=== PATIENT | male | born 1990 | race Caucasian/White ===

== ENCOUNTER 2019-07-15 23:32 | Emergency (ER) | payer BC | END 2019-07-16 00:53 | disposition home or self-care (01) | LOC: ERS 23:32 | DX: J10.1 Influenza due to other identified influenza virus with other respiratory manifestations (principal); F17.210 Nicotine dependence, cigarettes, uncomplicated | CPT/HCPCS: 87804; 99283 ==

== ENCOUNTER 2023-09-24 16:00 | Outpatient (CLI) | payer OTHER | END 2023-09-24 16:01 | disposition home or self-care (01) | LOC: SLEEPLAB 16:00 | PROVIDERS: ATTEND Family Medicine | DX: G47.33 Obstructive sleep apnea (adult) (pediatric) (principal); R53.83 Other fatigue; E66.9 Obesity, unspecified; R06.83 Snoring; E78.1 Pure hyperglyceridemia; F41.8 Other specified anxiety disorders; F98.8 Other specified behavioral and emotional disorders with onset usually occurring in childhood and adolescence; F17.200 Nicotine dependence, unspecified, uncomplicated; Z68.42 Body mass index [BMI] 45.0-49.9, adult | CPT/HCPCS: 95811 ==

== ENCOUNTER 2025-03-28 11:54 | Emergency (ER) | payer OTHER ==
[2025-03-28] MEDS ORDERED: Ketorolac Tromethamine 30 MG (1 mL) VIAL ONE (12:29)
[2025-03-28 12:44] LABS: #Basophils 0.04 10x3/uL (0.0-0.2); #Eosinophils 0.28 10x3/uL (0.0-0.7); #Monocytes 1.02 10x3/uL (0.11-0.59); #Neutrophils 8.82 10x3/uL (1.40-6.50); %Basophils 0.3 % (0.0-1.0); %Eosinophils 2.3 % (0.0-10.0); %Lymphocytes 15.9 % (21.0-51.0); %Monocytes 8.4 % (0.0-10.0); %Neutrophils 72.8 % (42.0-75.0); Hematocrit 37.6 % (42.0-52.0); Hemoglobin 12.7 g/dL (14.0-18.0); Mean Corpuscular Hemoglobin 30.2 pg (27.0-31.0); Mean Corpuscular Volume 89.5 fL (78.0-98.0); Platelet Count 221 10x3/uL (130-400); Red Blood Cell (RBC) Count 4.20 mill/uL (4.70-6.10); White Blood Cell (WBC) Count 12.13 10x3/uL (4.8-10.8)
[2025-03-28 13:06] LABS: Albumin 3.5 g/dL (3.1-4.5); Anion Gap 13 mmol/L (10-20); BUN (Urea Nitrogen) 10 mg/dL (8.9-20.6); Bilirubin, Total 0.9 mg/dL (0.3-1.2); Calc. Creatinine Clearance 0 mL/min (70-130); Calcium 9.3 mg/dL (7.8-10.44); Carbon Dioxide 26 mmol/L (22-29); Chloride 108 mmol/L (98-107); Globulin 3.4 g/dL (2.4-3.5); Glucose 87 mg/dL (70-105); Potassium 4.2 mmol/L (3.5-5.1); Sodium 143 mmol/L (136-145)
[2025-03-28 13:07] LABS: ALT (SGPT) 55 U/L (Less than 45); AST (SGOT) 44 U/L (11-34); Alkaline Phosphatase 106 U/L (40-110); Lipase 33 U/L (8-78)
[2025-03-28] MEDS ORDERED: Iopamidol-370 76% 500 ML MDV (1 ML CHARGE) ONE (13:27)
[2025-03-28 13:56] LABS: Bacteria/HPF None Seen HPF (None Seen); CAUTI Indications for Culture Pelvic or flank pain; Glucose, Urine (Dipstick) Normal (Negative); Leukocyte Negative Leu/uL (Negative); Protein, Urine (Dipstick) 20 mg/dL (Neg-Trace); Specific Gravity, Urine 1.036 (1.002-1.036); WBC/HPF 0-3 HPF (0-3)
[2025-03-28 13:58] LABS: Urine Culture Reflex No No
== END 2025-03-28 14:34 | disposition home or self-care (01) ==
LOC: ERS 11:54
DX: J18.9 Pneumonia, unspecified organism (principal); F17.210 Nicotine dependence, cigarettes, uncomplicated
CPT/HCPCS: 36415; 71260; 74177; 76705; 80053; 81001; 83690; 85025; 96374; J1885; Q9967